=== PATIENT | male | born 1990 | race African-American/Black ===

== ENCOUNTER 2021-01-03 08:00 | Outpatient (CLI) | payer OTHER ==
--- NOTE | 2021-01-03 15:03 | XRAY Report ---
PROCEDURE: Chest 2 View X-Ray INDICATIONS: CHEST DISCOMFORT TECHNIQUE: 2 views of the chest. COMPARISON: None. FINDINGS: Surgical changes and devices: None. Lungs and pleura: No pleural effusions or pneumothorax. Lungs are clear. Mediastinum: Mediastinal contours are normal. Heart size is normal. Bones and chest wall: No suspicious bony abnormalities. Soft tissues appear unremarkable. IMPRESSION: No acute cardiopulmonary abnormality. Reviewed by: Cesar Blood MD on 01/03/2021 3:01 PM PDT Approved by: Cesar Blood MD on 01/03/2021 3:01 PM PDT Station ID: [id number]
[2021-01-03 18:27] LABS: RAPID STREP SCREEN Negative (Negative)
== END 2021-01-03 23:59 | disposition home or self-care (01) ==
LOC: DI.N 08:00
PROVIDERS: ATTEND Family Medicine
DX: R07.89 Other chest pain (principal); J02.9 Acute pharyngitis, unspecified; Z20.822 Contact with and (suspected) exposure to COVID-19
CPT/HCPCS: 87070; 87430